=== PATIENT | male | born 1955 | race Hispanic/Latino ===

== ENCOUNTER 2017-06-16 14:31 | Inpatient (IN) | payer BC ==
[2017-06-16 14:45] VITALS: BMI 34.1
[2017-06-16] MEDS ORDERED: Sodium Chloride 0.9% 1,000 ML IV STA (14:50)
--- NOTE | 2017-06-16 14:50 | ED PDOC ---
Arrival/HPI - General Chief Complaint: Fever Time Seen by Provider: 06/16/17 14:32 Historian: Patient - History of Present Illness Narrative History of Present Illness (Text): 06/16/17 14:49 Jim Dunlap is a 61 year old male, whose past medical history includes COPD, emphysema, hyperlipidemia, rotator cuff surgery, presents to the Emergency department complaining of fever since Monday. Patient was seen by Dr. Kim for WBC count of 60,000 and was asked to visit the Emergency department for medical evaluation. Patient informs mild headache and intermittent burning while urinating since last night. Patient denies any cough , runny nose, abdominal pain, chest pain, shortness of breath, changes in stool or any other complaints. Time/Duration: < week Symptom Course: Unchanged Activities at Onset: Light Context: Home Past Medical History - Provider Review Nursing Documentation Reviewed: Yes - Pulmonary Hx Chronic Obstructive Pulmonary Disease (COPD): Yes (emphysema) - Psychiatric Hx Substance Use: No Family/Social History - Physician Review Nursing Documentation Reviewed: Yes Family/Social History: No Known Family HX Smoking Status: Never Smoked Hx Alcohol Use: No Hx Substance Use: No Allergies/Home Meds Allergies/Adverse Reactions: Allergies No Known Allergies Allergy (Verified 01/13/17 13:15) Home Medications: Home Meds Medication Instructions Recorded Confirmed Albuterol Sulfate [Proair Hfa] 0.09 mg IH BID 01/13/17 01/13/17 Rosuvastatin Calcium [Crestor] 5 mg PO DAILY 01/13/17 01/13/17 Tiotropium Br/Olodaterol HCl 4 gm IH DAILY 01/13/17 01/13/17 [Stiolto Respimat Inhal Clifford] Review of Systems - Physician Review All systems were reviewed & negative as marked: Yes - Review of Systems Constitutional: Fevers Eyes: Normal ENT: Normal Respiratory: Normal. absent: SOB Cardiovascular: Normal. absent: Chest Pain Gastrointestinal: Normal. absent: Abdominal Pain, Stool Changes Genitourinary Male: Other (mild burning while urinating last night ) Musculoskeletal: Normal Skin: Normal Neurological: Headache (mild headache ) Endocrine: Normal Hemo/Lymphatic: Normal Psychiatric: Normal Physical Exam Vital Signs Reviewed: Yes Vital Signs Temp Pulse Resp BP Pulse Ox 06/16/17 21:39 106 H 06/16/17 19:50 102.7 F H 109 H 16 148/86 98 06/16/17 14:42 100.7 F H 114 H 23 164/79 H 97 Temperature: Febrile Blood Pressure: Normal Pulse: Tachycardic Respiratory Rate: Normal Appearance: Positive for: Well-Appearing, Non-Toxic, Comfortable Pain Distress: None Mental Status: Positive for: Alert and Oriented X 3 - Systems Exam Head: Present: Atraumatic, Normocephalic Pupils: Present: PERRL Extroacular Muscles: Present: EOMI Conjunctiva: Present: Normal Mouth: Present: Moist Mucous Membranes Neck: Present: Normal Range of Motion Respiratory/Chest: Present: Other (Coarse breath sounds bilaterally). No: Clear to Auscultation, Respiratory Distress, Accessory Muscle Use Cardiovascular: Present: Regular Rate and Rhythm, Normal S1, S2. No: Murmurs Abdomen: Present: Normal Bowel Sounds. No: Tenderness, Distention, Peritoneal Signs Back: Present: Normal Inspection Upper Extremity: Present: Normal Inspection. No: Cyanosis, Edema Lower Extremity: Present: Normal Inspection. No: Edema Neurological: Present: GCS=15, CN II-XII Intact, Speech Normal Skin: Present: Warm, Dry, Normal Color. No: Rashes Psychiatric: Present: Alert, Oriented x 3, Normal Insight, Normal Concentration Medical Decision Making ED Course and Treatment: 06/16/17 14:50 Impression: 61 year old male presents to the Emergency department with subjective fever. Plan: --VBG Shock Panel -- EKG -- CT of Head, Abdomen, Pelvis with IV contrast -- Labs, Lipase, Magnesium -- Chest X-ray -- Blood Culture -- IV Fluids -- Urinalysis -- Tylenol --Zithromax --Rocephin --Influenza A B stat --Reassess and disposition Progress Notes: 06/16/17 15:16 EKG: Ordered, reviewed, and independently interpreted the EKG. Rate : 112 BPM Rhythm : Sinus Tachycardia Interpretation : No ST-segment elevations or depressions, no T-wave inversions, normal intervals. 06/16/17 15:16 Code sepsis called. 06/16/17 15:34 Chest X-ray reviewed by radiologist, shows: FINDINGS: LUNGS: There is an alveolar infiltrate in the left upper lobe PLEURA: No significant pleural effusion identified, no pneumothorax apparent. CARDIOVASCULAR:Normal. OSSEOUS STRUCTURES: No significant abnormalities. VISUALIZED UPPER ABDOMEN: Normal. OTHER FINDINGS: None. IMPRESSION: Left upper lobe pneumonia 06/16/17 17:02 EKG: Ordered, reviewed, and independently interpreted the EKG. Rate : 105 BPM Rhythm : Sinus Tachycardia Interpretation : No ST-segment elevations or depressions, no T-wave inversions, normal intervals. 06/16/17 17:38 FINDINGS: CT CHEST WITH CONTRAST: LUNGS: There are foci of airspace consolidation and infiltrate noted at the left upper lobe highly suspicious for pneumonia. [id number] emphysematous changes are noted also more prominent at the upper lobes. MEDIASTINUM: Unremarkable. Normal caliber aorta and pulmonary arterial trunk. No aortic dissection. Normal size heart. LYMPH NODES: Unremarkable. PLEURA: Trace left pleural effusion is noted. BONES: Unremarkable. OTHER FINDINGS: None. CT ABDOMEN AND PELVIS: LIVER: Unremarkable. No gross lesion or ductal dilatation. GALLBLADDER AND BILE DUCTS: No evidence of acute cholecystitis. PANCREAS: No evidence of acute pathology in the pancreas. There is low-attenuation cystic lesion at the pancreatic head measures 14.8 millimeter best seen on image 123 series 2. . No significant main pancreatic ductal dilatation. SPLEEN: Unremarkable. ADRENALS: Unremarkable. No mass. KIDNEYS AND URETERS: Unremarkable. No hydronephrosis. No solid mass. VASCULATURE: Unremarkable. No aortic aneurysm. BOWEL: Unremarkable. No obstruction. No gross mural thickening. APPENDIX: No evidence of appendicitis. PERITONEUM: Unremarkable. No free fluid. No free air. LYMPH NODES: Unremarkable. No enlarged lymph nodes. BLADDER: The urinary bladder is not distended therefore cannot be evaluated. REPRODUCTIVE: The prostate is mildly to moderately enlarged. BONES: No acute fracture. OTHER FINDINGS: None. IMPRESSION: Airspace consolidation and infiltrate at the left lung upper lobe suggestive of pneumonia. Trace left pleural effusion. No evidence of acute pathology in the abdomen and pelvis. - Critical Care Critical Care Minutes: 30 minutes - Lab Interpretations Lab Results: 06/16/17 15:00 06/16/17 15:00 Lab Results 06/16/17 16:20: Urine Color Yellow, Urine Appearance Clear, Urine pH 6.0, Ur Specific [place] 1.010, Urine Protein 30 H, Urine Glucose (UA) Negative, Urine Ketones Negative, Urine Blood Small H, Urine Nitrate Negative, Urine Bilirubin Negative, Urine Urobilinogen 0.2, Ur Leukocyte Esterase Negative, Urine RBC 5 - 10, Urine WBC 0 - 2, Ur Epithelial Cells 4 - 5, Amorphous Sediment Few, Urine Bacteria Many, Urine Other Fiber 06/16/17 15:00: pO2 49, VBG pH 7.43, VBG pCO2 39.0 L, VBG HCO3 25.9, VBG Total CO2 27.1, VBG O2 Sat (Calc) 91.1 H, VBG Base Excess 1.5, VBG Potassium 3.7, Sodium 134.0, Chloride 99.0, Glucose 154 H, Lactate 2.2 H, FiO2 21.0, Venous Blood Potassium 3.7 06/16/17 15:00: Sodium 134, Chloride 99, Potassium 3.8, Carbon Dioxide 25, Anion Gap 14, BUN 7, Creatinine 0.9, Est GFR ( Amer) > 60, Est GFR (Non- Af Amer) > 60, Random Glucose 148 H, Calcium 9.3, Magnesium 1.6 L, Total Bilirubin 0.8, AST 36, ALT 26, Alkaline Phosphatase 85, Lactate Dehydrogenase 501, Total Creatine Kinase 104, Troponin I 0.02, Total Protein 7.8, Albumin 4.0 , Globulin 3.8, Albumin/Globulin Ratio 1.1, Lipase 16 L 06/16/17 15:00: PT 17.3 H, INR 1.57 H, APTT 36.9 H 06/16/17 15:00: WBC 19.8 H, RBC 5.22, Hgb 14.8, Hct 42.0, MCV 80.5, MCH 28.4, MCHC 35.2, RDW 15.6 H, Plt Count 193, MPV 9.8, Gran % 91.2 H, Lymph % (Auto) 4.1 L, [place] % (Auto) 4.6, Eos % (Auto) 0.0 L, Baso % (Auto) 0.1, Gran # 18.07 H , Lymph # 0.8 L, [place] # 0.9 H, Eos # 0.0, Baso # 0.01, Neutrophils % (Manual) 91 H, Lymphocytes % (Manual) 5 L, Monocytes % (Manual) 4, Platelet Evaluation Normal I have reviewed the lab results: Yes - RAD Interpretation Radiology Orders: 06/16/17 14:49 CHEST PORTABLE [RAD] Stat 06/16/17 15:29 CHEST,ABD,PEL W/IV CONT ONLY [CT] Stat Adoption Services Manager: Radiologist - EKG Interpretation Interpreted by ED Physician: Yes Type: 12 lead EKG - Medication Orders Current Medication Orders: Acetaminophen (Tylenol 325mg Tab) 650 mg PO Q4H PRN PRN Reason: Fever >100.4 F Last Admin: 06/16/17 19:56 Dose: 650 mg MAR Pain/Vitals Document 06/16/17 19:56 HP (Rec: 06/16/17 19:56 HP [id number]) Pain Reassessment Is This A Pain ReAssessment? No Albuterol/Ipratropium (Duoneb 3 Mg/0.5 Mg (3 Ml) Ud) 3 ml IH Q6 JOHN Azithromycin (Zithromax 500mg In Ns) 500 mg in 250 mls @ 167 mls/hr IVPB DAILY JOHN PRN Reason: Protocol Discontinued Medications Acetaminophen (Tylenol 325mg Tab) 975 mg PO STAT STA Stop: 06/16/17 14:52 Last Admin: 06/16/17 15:05 Dose: 975 mg MAR Pain/Vitals Document 06/16/17 15:05 HP (Rec: 06/16/17 15:05 HP [id number]) Pain Reassessment Is This A Pain ReAssessment? No Albuterol/Ipratropium (Duoneb 3 Mg/0.5 Mg (3 Ml) Ud) 3 ml IH STAT STA Stop: 06/16/17 17:08 Last Admin: 06/16/17 17:29 Dose: 3 ml Azithromycin (Zithromax) 1,000 mg PO STAT STA PRN Reason: Protocol Stop: 06/16/17 15:10 Last Admin: 06/16/17 16:27 Dose: 1,000 mg Sodium Chloride (Sodium Chloride 0.9%) 1,000 mls @ 999 mls/hr IV .Q1H1M STA Stop: 06/16/17 15:50 Last Admin: 06/16/17 15:05 Dose: 999 mls/hr eMAR Start Stop Document 06/16/17 15:05 HP (Rec: 06/16/17 15:05 HP [id number]) Intravenous Solution Start Date 06/16/17 Start Time 15:05 End Date 06/16/17 End time 16:05 Total Infusion Time 60 Ceftriaxone Sodium (Rocephin 2 Gm Ivpb) 2 gm in 100 mls @ 100 mls/hr IVPB STAT STA PRN Reason: Protocol Stop: 06/16/17 16:08 Last Admin: 06/16/17 15:51 Dose: 100 mls/hr eMAR Start Stop Document 06/16/17 15:51 HP (Rec: 06/16/17 15:52 HP [id number]) Intravenous Solution Start Date 06/16/17 Start Time 15:51 End Date 06/16/17 End time 16:51 Total Infusion Time 60 Pantoprazole Sodium (Protonix Inj) 40 mg IVP STAT STA Stop: 06/16/17 18:17 Last Admin: 06/16/17 18:45 Dose: 40 mg IVP Administration Document 06/16/17 18:45 HP (Rec: 06/16/17 18:46 HP [id number]) Charges for Administration # of IVP Administrations 1 - Scribe Statement The provider has reviewed the documentation as recorded by the Scribe Sherry Antonio. All medical record entries made by the Scribe were at my direction and personally dictated by me. I have reviewed the chart and agree that the record accurately reflects my personal performance of the history, physical exam, medical decision making, and the department course for this patient. I have also personally directed, reviewed, and agree with the discharge instructions and disposition. Disposition/Present on Arrival - Present on Arrival Any Indicators Present on Arrival: No History of DVT/PE: No History of Uncontrolled Diabetes: No Urinary Catheter: No History of Decub. Ulcer: No History Surgical Site Infection Following: Orthopedic Procedures - Disposition Have Diagnosis and Disposition been Completed?: Yes Diagnosis: Sepsis, Pneumonia Disposition: HOSPITALIZED Disposition Time: 07:00 Condition: FAIR
[2017-06-16] MEDS ORDERED: cefTRIAXone 2 GM IN NS 2 GM/100 ML BAG IVPB STA (15:09)
[2017-06-16 15:12] LABS: VENOUS BLOOD GAS BASE EXCESS 1.5 mmol/L (0.0-2.0); VENOUS BLOOD PH 7.43 (7.32-7.43)
[2017-06-16 15:13] LABS: BASO # 0.01 K/mm3 (0.0-2.0); BASO % 0.1 % (0.0-3.0); GRAN # 18.07 (1.4-6.5); GRAN % 91.2 % (50.0-68.0); LYMPH # 0.8 (1.2-3.4); LYMPH % 4.1 % (22.0-35.0); MEAN CELL VOLUME 80.5 fl (80.0-105.0); MEAN CORPUSCULAR HEMOGLOBIN 28.4 pg (25.0-35.0); MEAN CORPUSCULAR HGB CONC 35.2 g/dl (31.0-37.0); MEAN PLATELET VOLUME 9.8 fl (7.0-11.0); MONO # 0.9 (0.1-0.6); MONO % 4.6 % (1.0-6.0); PLATELET COUNT 193 10^3/uL (120.0-450.0); RED CELL DISTRIBUTION WIDTH 15.6 % (11.5-14.5); WHITE BLOOD COUNT 19.8 10^3/ul (4.5-11.0)
[2017-06-16 15:24] LABS: ALB/GLOB RATIO 1.1 (1.1-1.8); ALKALINE PHOSPHATASE 85 U/L (38-126); ALT/SGPT 26 U/L (7-56); AST/SGOT 36 U/L (17-59); BILIRUBIN,TOTAL 0.8 mg/dL (0.2-1.3); BLOOD UREA NITROGEN 7 mg/dL (7-21); CALCIUM 9.3 mg/dL (8.4-10.5); CARBON DIOXIDE 25 mmol/L (21-33); CHLORIDE 99 mmol/L (98-107); GFR AFRICAN-AMERICAN > 60; GLUCOSE,RANDOM 148 mg/dL (70-110); LIPASE 16 U/L (23-300); MAGNESIUM 1.6 mg/dL (1.7-2.2); POTASSIUM 3.8 mmol/L (3.6-5.0); SODIUM 134 mmol/L (132-148); TOTAL PROTEIN 7.8 g/dL (5.8-8.3)
[2017-06-16 15:26] LABS: INR 1.57 (0.93-1.08); PARTIAL THROMBOPLASTIN TIME 36.9 Seconds (25.1-36.5)
--- NOTE | 2017-06-16 15:27 | RAD ---
HISTORY: fever COMPARISON: No prior. FINDINGS: LUNGS: There is an alveolar infiltrate in the left upper lobe PLEURA: No significant pleural effusion identified, no pneumothorax apparent. CARDIOVASCULAR: Normal. OSSEOUS STRUCTURES: No significant abnormalities. VISUALIZED UPPER ABDOMEN: Normal. OTHER FINDINGS: None. IMPRESSION: Left upper lobe pneumonia
[2017-06-16 15:36] LABS: TROPONIN I 0.02 ng/mL
[2017-06-16 16:02] LABS: NEUTROPHIL 91 % (50.0-70.0); PLATELET ESTIMATE NORMAL (NORMAL)
[2017-06-16 16:36] LABS: URINE APPEARANCE CLEAR (CLEAR); URINE BILIRUBIN NEGATIVE (NEGATIVE); URINE BLOOD SMALL (NEGATIVE); URINE COLOR YELLOW (YELLOW); URINE GLUCOSE (UA) NEGATIVE (NEGATIVE); URINE KETONE NEGATIVE (NEGATIVE); URINE LEUKOCYTE ESTERASE NEGATIVE Leu/uL (NEGATIVE); URINE PROTEIN 30 mg/dL (<30 mg/dL); URINE UROBILINOGEN 0.2 E.U./dL (<1 E.U./dL)
[2017-06-16 16:39] LABS: URINE AMORPHOUS SEDIMENT FEW; URINE BACTERIA MANY (NEG); URINE WBC 0 - 2 /hpf (0-6)
[2017-06-16] MEDS ORDERED: Albuterol-Ipratrop 3 mg / 0.5 (3 ml) UD IH STA (17:07)
--- NOTE | 2017-06-16 17:21 | CT ---
PROCEDURE: CT Chest, Abdomen and Pelvis with intravenous contrast HISTORY: sepsis/luekocytosis COMPARISON: None. TECHNIQUE: IV dose administered: 150 mL Omnipaque 350 Radiation dose: Total exam DLP = 1145.34 mGy-cm. This CT exam was performed using one or more of the following dose reduction techniques: Automated exposure control, adjustment of the mA and/or kV according to patient size, and/or use of iterative reconstruction technique. FINDINGS: CT CHEST WITH CONTRAST: LUNGS: There are foci of airspace consolidation and infiltrate noted at the left upper lobe highly suspicious for pneumonia. Ecuw-vi-dycuxrhx emphysematous changes are noted also more prominent at the upper lobes. MEDIASTINUM: Unremarkable. Normal caliber aorta and pulmonary arterial trunk. No aortic dissection. Normal size heart. LYMPH NODES: Unremarkable. PLEURA: Trace left pleural effusion is noted. BONES: Unremarkable. OTHER FINDINGS: None. CT ABDOMEN AND PELVIS: LIVER: Unremarkable. No gross lesion or ductal dilatation. GALLBLADDER AND BILE DUCTS: No evidence of acute cholecystitis. PANCREAS: No evidence of acute pathology in the pancreas. There is low-attenuation cystic lesion at the pancreatic head measures 14.8 millimeter best seen on image 123 series 2. . No significant main pancreatic ductal dilatation. SPLEEN: Unremarkable. ADRENALS: Unremarkable. No mass. KIDNEYS AND URETERS: Unremarkable. No hydronephrosis. No solid mass. VASCULATURE: Unremarkable. No aortic aneurysm. BOWEL: Unremarkable. No obstruction. No gross mural thickening. APPENDIX: No evidence of appendicitis. PERITONEUM: Unremarkable. No free fluid. No free air. LYMPH NODES: Unremarkable. No enlarged lymph nodes. BLADDER: The urinary bladder is not distended therefore cannot be evaluated. REPRODUCTIVE: The prostate is mildly to moderately enlarged. BONES: No acute fracture. OTHER FINDINGS: None. IMPRESSION: Airspace consolidation and infiltrate at the left lung upper lobe suggestive of pneumonia. Trace left pleural effusion. No evidence of acute pathology in the abdomen and pelvis.
--- NOTE | 2017-06-16 18:13 | CARD ---
APPROVED REPORT EKG Measurement Heart [id number] <Conclusion> Sinus tachycardia Left axis deviation Abnormal ECG
--- NOTE | 2017-06-16 18:14 | CARD ---
APPROVED REPORT EKG Measurement Heart [id number] <Conclusion> Sinus tachycardia Left axis deviation Abnormal ECG
[2017-06-16 20:58] LABS: VENOUS BLOOD GAS BASE EXCESS -0.9 mmol/L (0.0-2.0); VENOUS BLOOD PH 7.47 (7.32-7.43)
--- NOTE | 2017-06-16 21:28 | PCM.SEPTIC ---
Sepsis Progress Note - Reassessment Type Date of Evaluation: 06/16/17 Time of Evaluation: 21:00 Reassessment Type: Non-invasive reassessment - Non Invasive Reassessment Were the most recent vital sign reviewed: Yes Vital Sign (Latest): Temp Pulse Resp BP Pulse Ox 102.7 F H 109 H 16 148/86 98 06/16/17 19:50 06/16/17 19:50 06/16/17 19:50 06/16/17 19:50 06/16/17 19:50 Cardiovascular: Yes: Regular Rate, Rhythm, Tachycardia Respiratory: Yes: Normal Breath Sounds. No: Decreased Breath Sounds, Rhonchi, Stridor Capillary Refill: Normal (Less than 2 sec) Skin: Normal Color, Warm, Dry
[2017-06-17] MEDS: Albuterol-Ipratrop 3 mg / 0.5 (3 ml) UD IH SCH ×4 (01:03→19:19)
[2017-06-17 06:46] LABS: VENOUS BLOOD GAS BASE EXCESS 1.6 mmol/L (0.0-2.0); VENOUS BLOOD PH 7.48 (7.32-7.43)
[2017-06-17 07:18] LABS: HEMATOCRIT 39.1 % (42.0-52.0); MEAN CELL VOLUME 80.1 fl (80.0-105.0); MEAN CORPUSCULAR HEMOGLOBIN 27.7 pg (25.0-35.0); MEAN CORPUSCULAR HGB CONC 34.5 g/dl (31.0-37.0); MEAN PLATELET VOLUME 9.6 fl (7.0-11.0); WHITE BLOOD COUNT 17.5 10^3/ul (4.5-11.0)
[2017-06-17] MEDS: Budesonide 0.5 mg/2 ml Inhal Susp UD IH SCH ×2 (07:57→19:19)
[2017-06-17 08:00] LABS: ALKALINE PHOSPHATASE 74 U/L (38-126); ALT/SGPT 36 U/L (7-56); AST/SGOT 31 U/L (17-59); BILIRUBIN,TOTAL 0.5 mg/dL (0.2-1.3); BLOOD UREA NITROGEN 8 mg/dL (7-21); CALCIUM 8.8 mg/dL (8.4-10.5); CARBON DIOXIDE 25 mmol/L (21-33); CHLORIDE 100 mmol/L (98-107); GFR AFRICAN-AMERICAN > 60; GLUCOSE,RANDOM 123 mg/dL (70-110); POTASSIUM 3.7 mmol/L (3.6-5.0); SODIUM 134 mmol/L (132-148); TOTAL PROTEIN 7.1 g/dL (5.8-8.3)
--- NOTE | 2017-06-17 09:07 | CON ---
DATE: 06/17/2017 PULMONARY CONSULTATION REASON FOR CONSULTATION: Pneumonia. REFERRING PHYSICIAN: Dr Kim HISTORY OF PRESENT ILLNESS: The patient is a 61-year-old male, with past medical history significant for chronic obstructive pulmonary disease, positive extensive smoking history - still smokes, hyperlipidemia, who presents to [facility] with main complaints of progressive weakness, body aches, and fevers for the past 4 days. The patient is not short of breath at rest. He does have some mild dyspnea on exertion for the past few days. He denies cough or sputum production. The patient also denies chest pain, coughing up of blood, or chest pain - made worse with deep respirations. As above, the patient did present with fevers. No history of chills or infectious exposure. No history of night sweats, weight loss or appetite change prior to the above events. No history of leg or calf pains. No history of syncope or diaphoresis. No history of recent travel or trauma. REVIEW OF SYSTEMS: No history of nausea, vomiting or diarrhea. The patient does complain of some burning when he urinates. No new neurologic complaints. Rest of the review of systems is negative. ALLERGIES: NO KNOWN ALLERGIES. SOCIAL HISTORY: Positive for extensive tobacco usage - still smokes, no alcohol. FAMILY HISTORY: No inheritable diseases. HOME MEDICATIONS: Include Stiolto Respimat, Crestor, Arnuity Ellipta, and ProAir. PHYSICAL EXAMINATION GENERAL: The patient is not short of breath at rest. He is not using accessory muscles for breathing. VITAL SIGNS: Temperature is 99.4, pulse is 106, respirations are 18/20, and blood pressure is 135/72. Oxygen saturation on nasal cannula is 96% to 98%. HEENT: Normocephalic and atraumatic. NECK: No JVD. CARDIOVASCULAR: Positive S1 and S2. No S3, gallop. LUNGS: Minimal crackles left upper lobe. Minimal bilateral rhonchi. No wheezing. EXTREMITIES: No clubbing, cyanosis or edema. Calves are nontender to palpation. GASTROINTESTINAL: Abdomen is soft, nontender and nondistended. Bowel sounds are positive. SKIN: No acute rash. NEUROLOGIC: Exam is limited at the present time. PERTINENT LABORATORY DATA Pertinent Laboratory Data: CAT scan of the chest, abdomen and pelvis was done yesterday and reviewed. There is a left upper lobe infiltrate with air bronchograms consistent with pneumonia. There is also mild to moderate emphysematous changes noted. There is no lymphadenopathy. Lastly, there is trace left pleural effusion noted. There is no evidence of acute pathology in the abdomen or pelvis. CBC: White count of 19.8, hemoglobin of 14.8, hematocrit of 42.0, and platelets of 193. INR of 1.57. Complete metabolic profile: Glucose of 148 and magnesium of 1.6. Rest of the metabolic profile is within normal limits. IMPRESSION 1. Left upper lobe pneumonia. 2. Sepsis syndrome. 3. Chronic obstructive pulmonary disease. 4. Mild bronchospasm. PLAN: The patient presents to [facility] with a four-day history of progressive weakness, body aches, and fevers. He also complains of some mild dyspnea on exertion for the past few days. I did review the CAT scan of the chest. There is a patchy left upper lobe infiltrate with air bronchograms - consistent with pneumonia. Again, there is no lymphadenopathy. The patient has been cultured and started on antibiotic therapy. Infectious Diseases evaluation with Dr. Travis has also been ordered. I did discuss the case with Dr. Travis earlier this morning. On physical exam, there is only minimal bronchospasm noted. In addition, there is no significant alveolar-arterial gradient. Oxygen saturation on nasal cannula is 96% to 98%. I will continue the current nebulizer treatments and add inhaled Pulmicort. The patient is on inhaled steroids at home. The patient does feel better this morning - compared to the past few days. He is clinically improved. Additional Pulmonary intervention will be based on the clinical status of the patient. I will discuss the above with the attending physician later this morning. Thank you very much for this pulmonary consultation. Tani Winters MD MARY
[2017-06-17] MEDS ORDERED: Azithromycin 500MG/NS 250ml 500 MG/250 ML BAG IVPB SCH (10:00)
[2017-06-17] MEDS: cefTRIAXone 2 GM IN NS 2 GM/100 ML BAG IVPB SCH (10:21)
--- NOTE | 2017-06-17 13:02 | HP ---
CHIEF COMPLAINT: Fever for 2 days, generalized weakness. HISTORY OF PRESENT ILLNESS: A 61-year-old male with history of COPD and hyperlipidemia, who presented to emergency room with complaints of fever for 2 days prior to admission. The patient developed chills and body aches and weakness and since then fever persists. He denies any cough, sore throat, nasal congestion. He denies any abdominal pain, nausea, vomiting or diarrhea. Denies any dysuria or hematuria or flank pain. He was evaluated in the office the day before. His CBC in the office showed leukocytosis with WBC 60,000. The patient was advised to go to the emergency room for evaluation. PAST MEDICAL HISTORY: History of hyperlipidemia, history of COPD, history of bilateral shoulder problems with related cough, thirst, history of low back pain. SURGICAL HISTORY: Right rotator cuff surgery, laparoscopic in 2017. CURRENT MEDICATIONS: Stiolto inhaler, Crestor 10 mg daily, aspirin daily. ALLERGIES: THE PATIENT HAS NO KNOWN ALLERGIES. FAMILY HISTORY: Significant for father had prostate cancer. Mother from heart disease and hypertension. SOCIAL HISTORY: The patient has a long history of smoking, smokes 1 to 2 packs a day for the past 40 years. He quit temporarily, but restarted recently. He drinks alcohol socially. He denies any drug use. The patient is presently on workman's comp and disability due to right shoulder injury. He works as a music therapist public school system. The patient is . He lives with his family. REVIEW OF SYSTEMS: Complains of fever for the past 2 days. He denies loss of appetite or weight loss. He denies any nasal congestion, sore throat, ear pain or difficulty with swallowing. He denies any cough, shortness of breath or chest pain. He denies any heart palpitation, diaphoresis. The patient denies any abdominal pian, diarrhea, constipation, nausea or vomiting. He denies any dysuria or hematuria. He denies any flank pian. He complains of multiple joint pains, mostly his both shoulders. He has pain of the trigger finger. He complains of chronic low back pain. Neurological: The patient denies any blurry vision, headache, weakness, muscle weakness, numbness or paresthesia. PHYSICAL EXAMINATION: GENERAL: The patient is alert, awake, oriented. VITAL SIGNS: The patient came to emergency room with fever of 102.7. During my evaluation, his temperature was 99.7. The patient's blood pressure was 129/68; pulse 100, regular; respiratory rate 20; oxygen saturation was 98% on 2 L of nasal cannula. HEENT: Head is normocephalic, atraumatic. The eyes with pupils reactive to light. No jaundice. Oral mucosa is moist. Throat normal. NECK: Supple. No neck masses. No JVD. LUNGS: Clear to auscultation. No rhonchi, rales or wheezing. HEART: With regular rhythm. Slightly tachycardic. ABDOMEN: Soft, nontender, nondistended. No masses palpable. Bowel sounds are positive. EXTREMITIES: With no edema. There is full range of motion of all extremities. NEUROLOGICAL: Showed alert, awake oriented 3 times to person. No signs of motor deficits. DIAGNOSTIC TESTS: His pertinent tests showed CBC with leukocytosis, WBC 19.8 on admission, hemoglobin was 14.8, hematocrit 42 and platelet count was 193,000. Chemistry was normal. His troponin level was negative. Urinalysis showed small blood, but negative nitrites and leukocytes. His influenza test was negative. Chest x-ray showed left upper lobe pneumonia confirmed by CT scan of chest, which showed left upper lob consolidation and the rest of the CT scan including CT of the abdomen was negative. ASSESSMENT: 1. A 61-year-old male presented with 2 days of fever and with left upper lobe consolidation and chest x-ray and CT scan of the chest consistent with left upper lobe pneumonia, probably community acquired. 2. Sepsis syndrome with elevated white blood cells, fever, tachycardia. 3. Chronic obstructive pulmonary disease. PLAN OF TREATMENT: The patient was admitted to telemetry. Septic workup was done in the emergency room. Started on IV Zithromax and Rocephin. Infectious Disease specialist and neon glass bender were called and consult. The patient will be monitored closely for any hypoxia. We will continue oxygen. We will continue nebulizer treatment and budesonide. Rachelle Smyth MD MARY
--- NOTE | 2017-06-17 14:11 | CON ---
DATE: 06/17/2017 LOCATION: The patient is seen earlier today in room 276, bed 2. CHIEF COMPLAINT: Fever times several days. HISTORY OF PRESENT ILLNESS: This is a 61-year-old male, with past medical history significant for COPD, emphysema, hyperlipidemia. The patient has a history of rotator cuff surgery. He has been having fevers. He has been having very mild shortness of breath and cough. No chest pain. REVIEW OF SYSTEMS: Reveals no abdominal pain, diarrhea, or constipation. No dysuria or frequency. No headaches or blurred vision. He did have some headaches earlier at home with a fever. 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 Has not been country. ALLERGIES: DOES NOT HAVE ANY ALLERGIES. MEDICATIONS: At home includes a inhaler and Crestor. PHYSICAL EXAMINATION: GENERAL: The patient is in bed, in no acute distress. VITAL SIGNS: Temperature of 102.7, heart rate of 106, respiratory rate of 23, blood pressure is 120/68. HEENT: Unremarkable. NECK: Supple. LUNGS: Decreased breath sounds. HEART: Normal S1, S2. ABDOMEN: Soft, nontender. No organomegaly. No rebound. No guarding. No masses. LABORATORY DATA: Reveals a white count 19,800. The patient has 91% granulocytosis. Coagulation is noted. Chemistries reveal a BUN of 7, creatinine of 0.9. Urinalysis is noted and influenza is negative. Does have elevated glucose. Blood gases are noted. Procalcitonin has been ordered. Blood cultures have been ordered. Urine cultures have been ordered. We will also order sputum cultures. Currently, the patient was given azithromycin. ASSESSMENT AND PLAN: A 61-year-old male with chronic obstructive pulmonary disease, emphysema, hyperlipidemia, and high cholesterol, who has had rotator cuff surgery, who has no known allergies, who has not had any recent travel. No exposure to any animals, and states he believes he got the influenza vaccine. He is admitted with a fever, tachycardia, shortness of breath: 1. Sepsis with a left upper lobe pneumonia. We will treat with Rocephin and Flagyl, pending pancultures versus community-acquired pneumonia with sepsis in a patient, who is 61 years old, who has a fever and tachycardia and white count of 19,000 with 91% polys. Pending blood, urine, sputum cultures, and procalcitonin and workup for Legionella. We will make further recommendations. Also, ordered a human immunodeficiency virus because of his age. We will follow closely with you. Julio Travis MD
[2017-06-17] MEDS ORDERED: Oxycodone/Acetaminophen 5/325 mg Tab PO ONE (19:31)
[2017-06-18] MEDS: Albuterol-Ipratrop 3 mg / 0.5 (3 ml) UD IH SCH ×4 (01:22→19:24)
[2017-06-18 07:03] LABS: HEMATOCRIT 39.6 % (42.0-52.0); MEAN CORPUSCULAR HGB CONC 34.6 g/dl (31.0-37.0); MEAN PLATELET VOLUME 9.4 fl (7.0-11.0); RED CELL DISTRIBUTION WIDTH 16.1 % (11.5-14.5); WHITE BLOOD COUNT 13.3 10^3/ul (4.5-11.0)
[2017-06-18] MEDS: Budesonide 0.5 mg/2 ml Inhal Susp UD IH SCH ×2 (07:20→19:24)
--- NOTE | 2017-06-18 07:59 | PN ---
DATE: 06/18/2017 PULMONARY NOTE SUBJECTIVE: The patient appears comfortable this morning. He is not short of breath at rest. PHYSICAL EXAMINATION: VITAL SIGNS: Temperature is 97.9, pulse 74, respirations 18/20, blood pressure 121/71. Oxygen saturation on oxygen saturation on nasal cannula is 98-100%. HEENT: Normocephalic, atraumatic. NECK: No JVD. CARDIOVASCULAR: Positive S1, S2. No S3 gallop. LUNGS: Less crackles left upper lobe. Less rhonchi. No wheezing. EXTREMITIES: No clubbing, cyanosis or edema. Calves are nontender to palpation. GI: Abdomen is soft, nontender and nondistended. Bowel sounds are positive. SKIN: No acute rash. NEUROLOGIC: Exam limited at the present time. IMPRESSION: 1. Left upper lobe pneumonia. 2. Sepsis syndrome. 3. Chronic obstructive pulmonary disease. 4. Mild bronchospasm. PLAN: The patient appears very comfortable this morning. He is not short of breath at rest. He does state to feeling much better overall. On physical exam, his bronchospasm is certainly less. I will continue the current nebulizer treatments and inhaled steroids for now. I would continue with the antibiotic coverage as per Infectious Disease. The temperatures have actually resolved. Also, on last laboratories-- showed a decreased leukocytosis. Cultures are so far negative. Clinical status of the patient is significantly improved. The patient is advised to be out of bed as much as possible. I will discuss the above with the attending physician. Tani Winters MD MTDMarlene
[2017-06-18] MEDS ORDERED: Oxycodone/Acetaminophen 5/325 mg Tab PO ONE (08:06)
[2017-06-18 08:15] LABS: ALKALINE PHOSPHATASE 78 U/L (38-126); ALT/SGPT 30 U/L (7-56); AST/SGOT 46 U/L (17-59); BILIRUBIN,TOTAL 0.3 mg/dL (0.2-1.3); BLOOD UREA NITROGEN 11 mg/dL (7-21); CALCIUM 9.1 mg/dL (8.4-10.5); CARBON DIOXIDE 28 mmol/L (21-33); CHLORIDE 101 mmol/L (98-107); GFR AFRICAN-AMERICAN > 60; GLUCOSE,RANDOM 130 mg/dL (70-110); POTASSIUM 3.8 mmol/L (3.6-5.0); SODIUM 140 mmol/L (132-148); TOTAL PROTEIN 7.1 g/dL (5.8-8.3)
[2017-06-18] MEDS: cefTRIAXone 2 GM IN NS 2 GM/100 ML BAG IVPB SCH (09:28)
--- NOTE | 2017-06-18 10:25 | PN ---
DATE: 06/18/2017 SUBJECTIVE: The patient is in room 276, bed #2. No fevers and no chills. He says he is feeling better. PHYSICAL EXAMINATION: VITAL SIGNS: Temperature is 98, blood pressure is 120/70, respiratory rate of 16. HEENT: Unremarkable. NECK: Supple. LUNGS: Have decreased breath sounds. HEART: Normal S1, S2. ABDOMEN: Soft, nontender. LABORATORY DATA: Reveals a white count of 13,300, hemoglobin of 13 and platelets of 205. Chemistries reveals the patient has a BUN of 11, creatinine of 0.7 and procalcitonin is 0.51. Urinalysis is noted. Influenza is negative. Urine for Legionella antigen is negative. Microbiology reveals the blood cultures are negative. Urine cultures are negative. CT scan of the chest and abdomen is reviewed. Review of orders reveals the patient to be on ceftriaxone and azithromycin. His procalcitonin as stated is 0.51. Dr. Bazzi's note is reviewed. ASSESSMENT AND PLAN: This is a 61-year-old male with chronic obstructive lung disease, emphysema, hyperlipidemia, high cholesterol with rotator cuff surgery in the past, has had NO KNOWN ALLERGIES and no travel history and admitted with sepsis with a left upper lobe pneumonia, currently on ceftriaxone and azithromycin for community-acquired pneumonia and leukocytosis, improving and the fevers improving. We will check on human immunodeficiency virus on the patient. If the patient is to be discharged, he is asking about discharge. He may be discharged on p.o. Zithromax. Review of the EKG shows QTC of 425, may be able to use p.o. Levaquin 500 mg p.o. once daily or p.o. Zithromax as outpatient therapy upon discharge. Julio Travis MD
--- NOTE | 2017-06-18 12:04 | MRI ---
PROCEDURE: MRI BRAIN WITHOUT CONTRAST HISTORY: headaches COMPARISON: None. TECHNIQUE: Multiplanar, multisequence MR images of the brain were obtained without intravenous contrast enhancement. FINDINGS: HEMORRHAGE: None DWI: No evidence of an acute or early subacute infarction. BRAIN PARENCHYMA: No mass effect or edema. No atrophy or chronic microvascular ischemic changes. VENTRICLES: Unremarkable. No hydrocephalus. CRANIUM: Unremarkable. ORBITS: Grossly unremarkable. PARANASAL SINUSES/MASTOIDS: Clear VASCULAR SYSTEM: Skull base flow voids intact. OTHER FINDINGS: None. IMPRESSION: Unremarkable non contrast enhanced MRI of the brain.
--- NOTE | 2017-06-19 00:05 | PN ---
DATE: SUBJECTIVE: The patient is doing much better. The patient denies any fever, cough or chest pain. He complains of frontal headache for the last couple of days. Headache responds to Motrin. He denies any associated nausea or vomiting. PHYSICAL EXAMINATION: VITAL SIGNS: This morning, vitals are stable. Temperature 98.2, pulse 74, blood pressure 121/71, respiratory rate 16, oxygen saturation 98%. GENERAL: The patient is comfortable, sitting in chair, alert, awake, and oriented. HEENT: Head, normocephalic and atraumatic. Eyes, pupils are still reactive to light. Oral mucosa is moist. NECK: Supple. No neck masses. No JVD. LUNGS: Clear to auscultation. No rales or rhonchi. HEART: Regular rhythm and rate. ABDOMEN: Soft, nontender, nondistended. EXTREMITIES: No edema. NEUROLOGICAL: Showed alert, awake, and oriented person. Pupils are reactive to light. No sensor or motor deficits. No pathological reflexes. DIAGNOSTIC TESTS: CBC with WBC 13.3, hemoglobin 13.7, platelet count 205. Chemistry is normal. His random glucose remains borderline elevated which is ranging between 100 to 130. UA and blood cultures are negative. ASSESSMENT: 1. A 61-year-old male with history of fever and CT scan positive for left upper lobe infiltration treated for community-acquired pneumonia. He is clinically improved, afebrile over the past 24 hours. 2. Headache, etiology uncertain, possibly secondary to medication. 3. Chronic obstructive pulmonary disease. PLAN OF TREATMENT: The patient will remain on present antibiotics. ID specialist changed his Zithromax to p.o. He will continue Rocephin IV. The patient will be monitored closely. Continue Motrin for his headache. I will order MRI of the brain to rule out any brain pathology. Rachelle Smyth MD MTDM[facility]
[2017-06-19] MEDS: Albuterol-Ipratrop 3 mg / 0.5 (3 ml) UD IH SCH ×2 (01:30→08:04)
[2017-06-19 02:19] VITALS: RESP 20
[2017-06-19 06:00] LABS: HEMATOCRIT 37.7 % (42.0-52.0); MEAN CELL VOLUME 80.2 fl (80.0-105.0); MEAN CORPUSCULAR HEMOGLOBIN 27.9 pg (25.0-35.0); MEAN CORPUSCULAR HGB CONC 34.7 g/dl (31.0-37.0); MEAN PLATELET VOLUME 9.1 fl (7.0-11.0); RED CELL DISTRIBUTION WIDTH 15.9 % (11.5-14.5)
[2017-06-19 06:05] VITALS: TEMP 97.9; O2SAT 97
[2017-06-19 07:14] LABS: ALB/GLOB RATIO 0.9 (1.1-1.8); ALKALINE PHOSPHATASE 79 U/L (38-126); ALT/SGPT 55 U/L (7-56); AST/SGOT 73 U/L (17-59); BILIRUBIN,TOTAL 0.4 mg/dL (0.2-1.3); BLOOD UREA NITROGEN 11 mg/dL (7-21); CALCIUM 9.1 mg/dL (8.4-10.5); CARBON DIOXIDE 28 mmol/L (21-33); CHLORIDE 102 mmol/L (98-107); GFR AFRICAN-AMERICAN > 60; GLUCOSE,RANDOM 103 mg/dL (70-110); POTASSIUM 3.5 mmol/L (3.6-5.0); SODIUM 138 mmol/L (132-148); TOTAL PROTEIN 7.2 g/dL (5.8-8.3)
--- NOTE | 2017-06-19 07:22 | PN ---
PULMONARY NOTE DATE: 06/19/2017 SUBJECTIVE: The patient appears comfortable this morning. He is not short of breath at rest. PHYSICAL EXAMINATION VITAL SIGNS: Temperature is 97.9, pulse 76, respirations 18/20, blood pressure 143/80. Oxygen saturation on nasal cannula is 97%. HEENT: Normocephalic, atraumatic. No JVD. CARDIOVASCULAR: Positive S1, S2. No S3 gallop. LUNGS: Less crackles - left upper lobe. No rhonchi or wheezing on today's exam. EXTREMITIES: No clubbing, cyanosis or edema. Calves are nontender to palpation. GI: Abdomen is soft, nontender and nondistended. Bowel sounds are positive. SKIN: No acute rash. NEUROLOGIC: Limited at the present time. PERTINENT LABORATORY DATA: CBC: White count 9.0, hemoglobin 13.1, hematocrit 37.7, platelets of 236 thousand. IMPRESSION: 1. Left upper lobe pneumonia. 2. Sepsis syndrome. 3. Chronic obstructive pulmonary disease. 4. Mild bronchospasm. PLAN: The patient appears very comfortable this morning. He is not short of breath at rest. He does state to feeling much, much better overall. On physical exam, his bronchospasm has primarily resolved. In addition, there is no significant alveolar-arterial gradient. I will continue the current nebulizer treatments and inhaled steroids for now. I would continue with the antibiotic coverage as per Infectious Disease. Input by Dr. Travis is noted. The temperatures have now fully resolved. The leukocytosis has also fully resolved. Repeat chest x-ray has been ordered for today. I will check that when feasible. Clinical status of the patient is significantly improved. I will discuss the above with the attending physician. Tani Winters MD MTDM[facility]
[2017-06-19] MEDS: Budesonide 0.5 mg/2 ml Inhal Susp UD IH SCH (08:04)
[2017-06-19] MEDS: cefTRIAXone 2 GM IN NS 2 GM/100 ML BAG IVPB SCH (09:22)
[2017-06-19] MEDS ORDERED: Potassium Chloride 10 mEq ER Tab PO SCH (09:45)
[2017-06-19 11:55] VITALS: BP 156/83; PULSE 90
[2017-06-19] MEDS ORDERED: Potassium Chloride 20 mEq ER Tab PO SCH (13:10)
--- NOTE | 2017-06-19 15:47 | RAD ---
HISTORY: left upper lobe pneumonia COMPARISON: Chest x-ray performed 06/16/17 TECHNIQUE: Chest PA and lateral FINDINGS: Examination limited by habitus. LUNGS: Hazy veil like opacity within the left upper lobe suspicious for pneumonia. Recommend follow-up to ensure complete resolution. PLEURA: No significant pleural effusion identified. No definite pneumothorax. CARDIOVASCULAR: Heart size appears top normal. OSSEOUS STRUCTURES: Degenerative changes of the spine. VISUALIZED UPPER ABDOMEN: Unremarkable. OTHER FINDINGS: None. IMPRESSION: Hazy veil like opacity within the left upper lobe suspicious for pneumonia. Correlate clinically and recommend follow-up to resolution.
--- NOTE | 2017-06-19 18:25 | PN ---
DATE: 06/19/2017
--- NOTE | 2017-06-20 10:58 | DS ---
PRIMARY DIAGNOSES: 1. Left upper lobe pneumonia, community acquired. 2. Chronic obstructive lung disease. 3. Headache. 4. Hyperlipidemia. HISTORY OF PRESENT ILLNESS: The patient is 61 year old male admitted for high fever, found to have infiltration of left upper lobe chest x ray and CT scan of the chest. He is feeling better on discharge. He denies any cough, fever, chest pain and shortness of breath. He continues with some nonspecific frontal headaches. PHYSICAL EXAMINATION: On discharge: GENERAL: The patient is comfortable, alert, awake and oriented. VITAL SIGNS: Stable. Temperature is 97.9, pulse 76, blood pressure 143/80, respiratory rate 20, his oxygen saturation is 97% on room air. HEENT: Head is normocephalic, atraumatic. Oral mucosa is moist. NECK: Supple. LUNGS: Clear to auscultation. No rales or rhonchi. HEART: Regular rhythm and rate. ABDOMEN: Soft and nontender, nondistended. EXTREMITIES: Full range of motion. No edema, cyanosis, or clubbing. NEUROLOGIC: Normal with no sensory motor deficit. DIAGNOSTIC TESTS: This morning CBC significant for normal WBC, hemoglobin 13.1, platelet count 206. Chemistry is normal except borderline potassium 3.5. Renal function is normal. His urine and blood cultures are negative. His MRI of the brain was read as negative for any intracerebral pathology. His followup chest x ray from this morning is still pending. HOSPITAL COURSE: The patient was treated with azithromycin IV and Rocephin IV. The patient was evaluated by Infectious Disease specialist and boatwright, treated with nebulizer and budesonide added to nebulizer. His hospitalization course was normal. He was discharged home in stable condition, heart-healthy diet. Continue his chronic medications Stiolto twice a day and Crestor 10 mg daily. The patient will take Levaquin 500 mg daily for the next 7 days. He was advised to followup with primary care doctor next week and followup with Hearing Care Practitioner in 2 weeks. Rachelle Smyth MD MARY
== END 2017-06-19 13:57 | disposition home or self-care (01) | DRG 194 ==
LOC: ED 14:31 → ERH 17:32 → MERGE 17:32 → 2RSO 21:03
PROVIDERS: ADMIT Family Medicine; ATTEND Family Medicine
DX: J18.9 Pneumonia, unspecified organism (principal); J44.0 Chronic obstructive pulmonary disease with (acute) lower respiratory infection; J98.01 Acute bronchospasm; G44.40 Drug-induced headache, not elsewhere classified, not intractable; T50.905A Adverse effect of unspecified drugs, medicaments and biological substances, initial encounter; F17.200 Nicotine dependence, unspecified, uncomplicated; E78.5 Hyperlipidemia, unspecified

== ENCOUNTER 2018-05-30 17:20 | Emergency (ER) | payer BC ==
[2018-05-30 17:26] VITALS: RESP 18; BMI 32.5
--- NOTE | 2018-05-30 18:03 | ED PDOC ---
Arrival/HPI - General Historian: Patient - History of Present Illness Narrative History of Present Illness (Text): 05/30/18 17:54 62yo male with pmhx of COPD who present today with complaint of worsening right sided mid to lower back pain that started this morning. Also report brownish productive cough x 6days. Describes back pain as constant and sharp, worse with any movement. He denies fever, chills, nausea, vomiting, hematuria, dysuria, urinary frequency, abdominal pain, night sweat. weight loss, chest pain, SOB, diaphoresis, ripping/tearing upper back pain, any other complaint. <Thang Leyva - Last Filed: 05/31/18 01:31> <Babak Rivera - Last Filed: 05/31/18 04:45> - General Chief Complaint: Back Pain Past Medical History - Provider Review Nursing Documentation Reviewed: Yes - Infectious Disease Hx of Infectious Diseases: None - Cardiac Hx Pacemaker: No - Pulmonary Hx Chronic Obstructive Pulmonary Disease (COPD): Yes Hx Emphysema: Yes - Neurological Hx Paralysis: No - HEENT Hx HEENT Disorder: Yes (eyeglasses) - Hematological/Oncological Hx Blood Transfusions: No Hx Blood Transfusion Reaction: No - Integumentary Hx Dermatological Disorder: Yes (lle dry skin) - Musculoskeletal/Rheumatological Hx Falls: No - Psychiatric Hx Emotional Abuse: No Hx Physical Abuse: No Hx Substance Use: No - Surgical History Other/Comment: left rotator cuff sx 5 yrs ago, r rotator cuff sx 01/2017 - Anesthesia Hx Anesthesia: Yes Hx Anesthesia Reactions: No Hx Malignant Hyperthermia: No - Suicidal Assessment Feels Threatened In Home Enviroment: No <Thang Leyva A - Last Filed: 05/31/18 01:31> Family/Social History - Physician Review Nursing Documentation Reviewed: Yes Family/Social History: Unknown Family HX Smoking Status: Former Smoker Hx Alcohol Use: No Hx Substance Use: No <Thang Leyva - Last Filed: 05/31/18 01:31> Allergies/Home Meds <Thang Leyva A - Last Filed: 05/31/18 01:31> <Babak Rivera - Last Filed: 05/31/18 04:45> Allergies/Adverse Reactions: Allergies No Known Allergies Allergy (Verified 05/23/13 14:24) Home Medications: Home Meds Medication Instructions Recorded Confirmed Albuterol Sulfate [Proair Hfa] 0.09 mg IH BID 01/13/17 05/30/18 Tiotropium Br/Olodaterol HCl 4 gm IH DAILY 01/13/17 05/30/18 [Stiolto Respimat Inhal [place]] Fluticasone Furoate [Arnuity 2 puff IH DAILY 06/16/17 05/30/18 Ellipta] Simvastatin 1 tab PO HS 05/30/18 05/30/18 Review of Systems - Physician Review All systems were reviewed & negative as marked: Yes - Review of Systems Constitutional: Normal Eyes: Normal ENT: Normal Respiratory: Cough, Sputum. absent: SOB, Wheezing Cardiovascular: Normal Gastrointestinal: Normal Genitourinary Male: Normal Musculoskeletal: Back Pain Skin: Normal Neurological: Normal Endocrine: Normal Hemo/Lymphatic: Normal Psychiatric: Normal <Diru,Happiness A - Last Filed: 05/31/18 01:31> Physical Exam Vital Signs Reviewed: Yes Vital Signs Temp Pulse Resp BP Pulse Ox 05/30/18 17:26 97.9 F 82 18 175/80 H 97 Temperature: Afebrile Blood Pressure: Normal Pulse: Regular Respiratory Rate: Normal Appearance: Positive for: Well-Appearing, Non-Toxic, Comfortable Pain Distress: None Mental Status: Positive for: Alert and Oriented X 3 - Systems Exam Head: Present: Atraumatic, Normocephalic Pupils: Present: PERRL Extroacular Muscles: Present: EOMI Conjunctiva: Present: Normal Mouth: Present: Moist Mucous Membranes Neck: Present: Normal Range of Motion Respiratory/Chest: Present: Clear to Auscultation, Good Air Exchange. No: Respiratory Distress, Accessory Muscle Use, Wheezes, Decreased Breath Sounds, Rales, Retracting, Rhonchi Cardiovascular: Present: Regular Rate and Rhythm, Normal S1, S2. No: Murmurs Abdomen: Present: Tenderness (Right flank), Other (Soft). No: Distention, Peritoneal Signs, Rebound, Guarding, McBurney's Point Tender, Rovsing's Sign Present Back: Present: Paraspinal Tenderness (Right paraspinous tenderness). No: Midline Tenderness Upper Extremity: Present: Normal Inspection. No: Cyanosis, Edema Lower Extremity: Present: Normal Inspection. No: Edema Neurological: Present: GCS=15, CN II-XII Intact, Speech Normal Skin: Present: Warm, Dry, Normal Color. No: Rashes Psychiatric: Present: Alert, Oriented x 3, Normal Insight, Normal Concentration <Thang Leyva A - Last Filed: 05/31/18 01:31> Vital Signs Temp Pulse Resp BP Pulse Ox 05/30/18 20:35 98 F 75 18 145/82 100 05/30/18 19:26 71 18 152/78 H 96 05/30/18 18:46 98 F 72 18 153/88 H 97 05/30/18 17:26 97.9 F 82 18 175/80 H 97 <Babak iRvera - Last Filed: 05/31/18 04:45> Medical Decision Making ED Course and Treatment: 05/31/18 01:31 PT in ED for stated history. He was ambulatory and neurologically intact in ED. PT's pain was palpable. Symptoms more likely MS in nature. However abdominal/pelvic CT was ordered to r/o renal colic. Labs UA LS xray abdominal/ Pelvic CT chest xray Labs was unremarkable LS xray - DJD No acute finding CXR NAD Abdominal/Pelvic CT IMPRESSION: No significant or acute findings to account for/ related to the clinical presentation. On re evaluation pt's pain improved in ED. All result was DW the pt. He reported that he had a epidural injection a week ago and was scheduled for another one today, but he cancelled because his job didn't give him the time off. He was advised to f/u with his ortho Rx of Naprosyn and Baclofen was given - RAD Interpretation Radiology Orders: 05/30/18 17:49 CHEST TWO VIEWS (PA/LAT) [RAD] Stat 05/30/18 17:52 ABD & PELVIS W/O PO OR IV CONT [CT] Stat - Medication Orders Current Medication Orders: Ketorolac Tromethamine (Toradol) 30 mg IVP STAT STA Stop: 05/30/18 17:54 <Thang Leyva A - Last Filed: 05/31/18 01:31> - Lab Interpretations Lab Results: 05/30/18 18:12 05/30/18 18:12 Lab Results 05/30/18 20:20: Urine Color Yellow, Urine Appearance Clear, Urine pH 6.0, Ur Specific [place] 1.020, Urine Protein Negative, Urine Glucose (UA) Negative, Urine Ketones Negative, Urine Blood Trace-intact H, Urine Nitrate Negative, Urine Bilirubin Negative, Urine Urobilinogen 0.2, Ur Leukocyte Esterase Negative, Urine RBC 1 - 3, Urine WBC 1 - 3, Ur Epithelial Cells 4 - 5, Urine Bacteria Few 05/30/18 18:12: PT 12.1, INR 1.06, APTT 29.6 05/30/18 18:12: Sodium 139, Potassium 3.7, Chloride 108 H, Carbon Dioxide 25, Anion Gap 10, BUN 10, Creatinine 0.6 L, Est GFR ( Amer) > 60, Est GFR (Non-Af Amer) > 60, Random Glucose 93, Calcium 8.8, Total Bilirubin 0.6, AST 30, ALT 29, Alkaline Phosphatase 94, Total Protein 7.6, Albumin 4.0, Globulin 3.6, Albumin/Globulin Ratio 1.1 05/30/18 18:12: WBC 8.9, RBC 5.09, Hgb 14.3, Hct 42.2, MCV 82.9, MCH 28.1, MCHC 33.9, RDW 14.9 H, Plt Count 219, MPV 9.2, Gran % 69.3 H, Lymph % (Auto) 24.0, [place] % (Auto) 5.4, Eos % (Auto) 1.2 L, Baso % (Auto) 0.1, Gran # 6.17, Lymph # (Auto) 2.1, [place] # (Auto) 0.5, Eos # (Auto) 0.1, Baso # (Auto) 0.01 - RAD Interpretation Radiology Orders: 05/30/18 17:49 CHEST TWO VIEWS (PA/LAT) [RAD] Stat 05/30/18 17:52 ABD & PELVIS W/O PO OR IV CONT [CT] Stat 05/30/18 19:13 LS SPINE WITH OBL > 18 YRS OLD [RAD] Stat - Medication Orders Current Medication Orders: Discontinued Medications Ketorolac Tromethamine (Toradol) 30 mg IVP STAT STA Stop: 05/30/18 17:54 Last Admin: 05/30/18 18:00 Dose: 30 mg MAR Pain Assessment Document 05/30/18 18:00 LA (Rec: 05/30/18 18:01 LA [id number]) Pain Reassessment Is this a pain reassessment? No Sleep Is patient sleeping during reassessment? No Presence of Pain Presence of Pain Yes Pain Scale Used Protocol: PSCALES Pain Scale Used Numeric Location Left, Right or Bilateral Right Upper or Lower Lower Pain Location Body Site Back Description Description Constant Intensity of Pain at present 9 Pain Behavior Guarding IVP Administration Document 05/30/18 18:00 FELIPE (Rec: 05/30/18 18:01 LA [id number]) Charges for Administration # of IVP Administrations 1 <Babak Rivera - Last Filed: 05/31/18 04:45> - PA / INSURANCE LICENSING SUPERVISOR / Resident Statement / has reviewed & agrees with the documentation as recorded. <Babak Rivera - Last Filed: 05/31/18 04:45> Disposition/Present on Arrival - Present on Arrival Any Indicators Present on Arrival: No History of DVT/PE: No History of Uncontrolled Diabetes: No Urinary Catheter: No History of Decub. Ulcer: No History Surgical Site Infection Following: None - Disposition Have Diagnosis and Disposition been Completed?: Yes Disposition Time: 20:10 Patient Plan: Discharge <Thang Leyva - Last Filed: 05/31/18 01:31> <Babak Rivera - Last Filed: 05/31/18 04:45> - Disposition Diagnosis: Back pain, Cough Disposition: HOME/ ROUTINE Condition: STABLE Discharge Instructions (ExitCare): Cough in Adults, Low Back Pain (DC) Additional Instructions: Follow up with your doctor Return to ED for any new or worsening symptoms Prescriptions: RX: Baclofen [Lioresal] 20 mg PO BID #10 tab Benzonatate [Tessalon Perles] 100 mg PO TID #20 sgl Naproxen [Naprosyn] 500 mg PO BID #20 tablet Referrals: Brenda Knott MD [Medical Doctor] - Follow up with primary Forms: [employer] (Turkish), WORK NOTE
[2018-05-30 18:34] LABS: BASO # 0.01 K/mm3 (0.0-2.0); BASO % 0.1 % (0.0-3.0); EOS # 0.1 (0.0-0.7); EOS % 1.2 % (1.5-5.0); GRAN # 6.17 (1.4-6.5); GRAN % 69.3 % (50.0-68.0); HEMOGLOBIN 14.3 g/dL (14.0-18.0); LYMPH # 2.1 (1.2-3.4); MEAN CELL VOLUME 82.9 fl (80.0-105.0); MEAN CORPUSCULAR HEMOGLOBIN 28.1 pg (25.0-35.0); MEAN CORPUSCULAR HGB CONC 33.9 g/dl (31.0-37.0); MEAN PLATELET VOLUME 9.2 fl (7.0-11.0); MONO # 0.5 (0.1-0.6); MONO % 5.4 % (1.0-6.0); RBC 5.09 10^6/uL (3.5-6.1); RED CELL DISTRIBUTION WIDTH 14.9 % (11.5-14.5); WHITE BLOOD COUNT 8.9 10^3/uL (4.5-11.0)
[2018-05-30 18:44] LABS: ALB/GLOB RATIO 1.1 (1.1-1.8); ALT/SGPT 29 U/L (7-56); AST/SGOT 30 U/L (17-59); BLOOD UREA NITROGEN 10 mg/dL (7-21); CALCIUM 8.8 mg/dL (8.4-10.5); GFR NON-AFRICAN AMERICAN > 60
[2018-05-30 18:47] VITALS: TEMP 98
[2018-05-30 18:48] LABS: INR 1.06; PARTIAL THROMBOPLASTIN TIME 29.6 Seconds (25.1-36.5); PROTHROMBIN TIME 12.1 SECONDS (9.4-12.5)
--- NOTE | 2018-05-30 18:54 | CT ---
Date of service: 05/30/2018 PROCEDURE: CT Abdomen and Pelvis without intravenous contrast HISTORY: right sided back pain/flank COMPARISON: None. TECHNIQUE: Unenhanced. Neither IV nor oral contrast administered Radiation dose: Total exam DLP = 824.91 mGy-cm. This CT exam was performed using one or more of the following dose reduction techniques: Automated exposure control, adjustment of the mA and/or kV according to patient size, and/or use of iterative reconstruction technique. FINDINGS: LOWER THORAX: Unremarkable. LIVER: Unremarkable. No gross lesion or ductal dilatation. GALLBLADDER AND BILE DUCTS: Unremarkable. PANCREAS: Unremarkable. No gross lesion or ductal dilatation. SPLEEN: Unremarkable. ADRENALS: Unremarkable. No mass. KIDNEYS AND URETERS: Unremarkable. No hydronephrosis. No solid mass. VASCULATURE: No aortic aneurysm. Atherosclerotic calcification and mural plaque present. Findings are seen throughout the aorta BOWEL: Unremarkable. No obstruction. No gross mural thickening. APPENDIX: A normal appendix is visualized in it's entirety. PERITONEUM: Unremarkable. No free fluid. No free air. LYMPH NODES: Unremarkable. No enlarged lymph nodes. BLADDER: Unremarkable. REPRODUCTIVE: Unremarkable. BONES: No acute fracture. OTHER FINDINGS: None. IMPRESSION: No significant or acute findings to account for/ related to the clinical presentation.
[2018-05-30 20:35] VITALS: BP 145/82; PULSE 75; O2SAT 100
[2018-05-30 20:44] LABS: URINE BILIRUBIN NEGATIVE (NEGATIVE); URINE BLOOD TRACE-INTACT (NEGATIVE); URINE GLUCOSE (UA) NEGATIVE (NEGATIVE); URINE LEUKOCYTE ESTERASE NEGATIVE Leu/uL (NEGATIVE); URINE PROTEIN NEGATIVE mg/dL (<30 mg/dL); URINE UROBILINOGEN 0.2 E.U./dL (<1 E.U./dL)
[2018-05-30 20:46] LABS: URINE APPEARANCE CLEAR (CLEAR); URINE COLOR YELLOW (YELLOW)
[2018-05-30 20:47] LABS: URINE BACTERIA FEW (NEG)
--- NOTE | 2018-05-31 07:40 | RAD ---
Date of service: 05/30/2018 HISTORY: cough COMPARISON: Chest radiographs 07/11/2017. TECHNIQUE: Chest PA and lateral FINDINGS: LUNGS: No active pulmonary disease. PLEURA: No significant pleural effusion identified. No pneumothorax apparent. CARDIOVASCULAR: No aortic atherosclerotic calcification present. Normal cardiac size. No pulmonary vascular congestion. OSSEOUS STRUCTURES: Extensive multilevel thoracic spondylosis appreciated. VISUALIZED UPPER ABDOMEN: Normal. OTHER FINDINGS: None. IMPRESSION: No interval acute cardiopulmonary disease appreciated.
--- NOTE | 2018-05-31 08:30 | RAD ---
Date of service: 05/30/2018 PROCEDURE: Radiographs of the Lumbar Spine. HISTORY: back pain COMPARISON: No prior. FINDINGS: BONES: Normal alignment. No listhesis. No fracture. DISC SPACES: Unremarkable. OTHER FINDINGS: Facet arthropathy at L5-S1 IMPRESSION: Facet arthropathy at L5-S1
== END 2018-05-30 20:55 | disposition home or self-care (01) ==
LOC: ED 17:20
DX: M54.5 Low back pain (principal); R05 Cough
CPT/HCPCS: 71046; 72110; 74176; 80053; 81001; 85025; 85610; 85730; 96374; 99284; J1885